=== PATIENT | male | born 1970 | race Caucasian/White ===

== ENCOUNTER 2018-09-05 08:16 | Emergency (ER) | payer BC ==
[~2018-09-05] VITALS: Ht 180.3 cm; Wt 118.4 kg
[2018-09-05 08:26] VITALS: Ht 180.3 cm; Wt 118.4 kg
[2018-09-05 10:10] VITALS: BP 137/98
== END 2018-09-05 10:10 | disposition home or self-care (01) ==
LOC: ED 08:16
DX: R10.9 Unspecified abdominal pain (principal); Z87.442 Personal history of urinary calculi; Z98.890 Other specified postprocedural states
CPT/HCPCS: J1885; J7030

== ENCOUNTER 2018-10-05 16:20 | Emergency (ER) | payer BC ==
[~2018-10-05] VITALS: Ht 177.8 cm; Wt 114.8 kg
[2018-10-05 16:40] VITALS: Ht 177.8 cm; Wt 114.8 kg
[2018-10-05 18:19] LABS: UA SPECIFIC GRAVITY 1.025 (1.005-1.035); microscopic required? YES; urine erythrocyte 2+ (NEGATIVE)
[2018-10-05 18:20] LABS: BASOPHIL % 0.1 % (0-2); PLATELET COUNT 247 x10^3mcL (130-400); RED CELL DISTRIBUTION WIDTH 12.7 % (11.5-14.5)
[2018-10-05 18:29] LABS: CALCIUM 10.1 mg/dL (8.5-10.1); CARBON DIOXIDE 24.7 mmol/L (21-32); CHLORIDE SERUM 105 mmol/L (98-107); CREATININE SERUM 1.1 mg/dL (0.7-1.3); GFR1 > 60 mL/min; GLUCOSE SERUM 91 mg/dL (74-106); POTASSIUM SERUM 4.2 mmol/L (3.5-5.1); SODIUM SERUM 142 mmol/L (136-145)
[2018-10-05 18:33] LABS: ALBUMIN 3.8 g/dL (3.4-5.0); ALKALINE PHOSPHATASE 62 U/L (46-116); ALT/SGPT 62 U/L (16-63); AMYLASE 39 U/L (25-115); AST/SGOT 38 U/L (15-37); BILIRUBIN TOTAL 0.7 mg/dL (0.20-1.00); LIPASE 112 IU/L (73-393); TOTAL PROTEIN, SERUM 7.8 g/dL (6.4-8.2)
[2018-10-05 21:43] VITALS: BP 157/97
== END 2018-10-05 21:43 | disposition home or self-care (01) ==
LOC: ED 16:20
PROVIDERS: Specialist
DX: N13.30 Unspecified hydronephrosis (principal); N23 Unspecified renal colic; Z87.442 Personal history of urinary calculi; Z98.890 Other specified postprocedural states
CPT/HCPCS: J1885; J2405; J3010; J7030